=== PATIENT | male | born 1965 | race African-American/Black ===

== ENCOUNTER 2016-11-27 12:36 | Inpatient (IN) | payer OTHER ==
[2016-11-27 14:32] VITALS: BMI 20.4
[2016-11-27] MEDS ORDERED: LOPERAMIDE HCL 2 MG CAPSULE PO PRN (17:45)
[2016-11-27] MEDS ORDERED: P-EPHED 60MG/TRIPROLIDI 2.5MG TABLET PO PRN (17:45)
[2016-11-27] MEDS ORDERED: ACETAMINOPHEN 325 MG TABLET (FP) PO PRN (17:45)
[2016-11-27] MEDS ORDERED: guaiFENesin/D-METHORPHAN HB 10 ML UNIT-DOSE CUPS PO PRN (17:45)
[2016-11-27] MEDS ORDERED: MENTHOL/PHENOL 1 EACH UD MM PRN (17:45)
[2016-11-27] MEDS ORDERED: MAG HYDROX/AL HYDROX/SIMETH 30 ML UNIT-DOSE CUP PO PRN (17:45)
[2016-11-27] MEDS ORDERED: MAGNESIUM HYDROX 2400MG/30ML ORAL SUSPENSION 30 ML CUP PO PRN (17:45)
[2016-11-27] MEDS ORDERED: MAGNESIUM CITRATE 300 ML BOTTLE PO PRN (17:45)
[2016-11-27] MEDS ORDERED: NICOTINE POLACRILEX 2 MG GUM BUC PRN (17:45)
[2016-11-27] MEDS ORDERED: IBUPROFEN 400 MG TABLET (FP) PO PRN (17:45)
--- NOTE | 2016-11-27 17:45 | HP ---
CIWA Score - CIWA Score Nausea/Vomitin Muscle Tremors: 2 Anxiety: 4-Mod. Anxious/Guarded Agitation: 3 Paroxysmal Sweats: 2 Orientation: 0-Oriented Tacttile Disturbances: 2-Mild Itch/Numbness/Burn Auditory Disturbances: 0-None Visual Disturbances: 0-None Headache: 3-Moderate CIWA-Ar Total Score: 19 Admission ROS BHS - HPI Chief Complaint: alcohol and cocaine withdrawal sx Allergies/Adverse Reactions: Allergies Allergy/AdvReac Type Severity Reaction Status Date / Time Penicillins Allergy Severe Swelling Verified 11/27/16 17:37 - Ebola screening Have you traveled outside of the country in the last 21 days: No Have you had contact with anyone from an Ebola affected area: No Have you been sick,other than usual withdrawal symptoms: No Do you have a fever: No Patient History - Patient Medical History Hx Anemia: No Hx Asthma: No Hx Chronic Obstructive Pulmonary Disease (COPD): No Hx Cancer: No Hx Cardiac Disorders: No Hx Congestive Heart Failure: No Hx Hypertension: Yes Hx Hypercholesterolemia: No Hx Pacemaker: No HX Cerebrovascular Accident: No Hx Seizures: No Hx Dementia: No Hx Diabetes: No Hx Gastrointestinal Disorders: No Hx Liver Disease: Yes (hep c has not been treated) Hx Genitourinary Disorders: No Hx Sexually Transmitted Disorders: No Hx Renal Disease (ESRD): No Hx Thyroid Disease: No Hx Human Immunodeficiency Virus (HIV): Yes (ON MEDS, last taken 3 days ago) Hx Hepatitis C: Yes (NOT YET TREATED) Hx Depression: No Hx Suicide Attempt: Yes (no suicidal ideation at present, last in 1999) Hx Bipolar Disorder: No Hx Schizophrenia: Yes - Patient Surgical History Past Surgical History: No Hx Neurologic Surgery: No Hx Cataract Extraction: No Hx Cardiac Surgery: No Hx Lung Surgery: No Hx Breast Surgery: No Hx Breast Biopsy: No Hx Abdominal Surgery: No Hx Appendectomy: No Hx Cholecystectomy: No Hx Genitourinary Surgery: No Hx Section: No Hx Orthopedic Surgery: No Anesthesia Reaction: No - PPD History Date: 01/28/15 Results: 0mm PPD to be Administered?: Yes - Reproductive History Patient is a Female of Child Bearing Age (11 -55 yrs old): No Patient : No - Smoking Cessation Smoking history: Current every day smoker Have you smoked in the past 12 months: Yes Aproximately how many cigarettes per day: 4 Cigars Per Day: 0 Hx Chewing Tobacco Use: No Initiated information on smoking cessation: Yes 'Breaking Loose' booklet given: 11/27/16 - Substance & Tx. History Hx Alcohol Use: Yes Hx Substance Use: Yes Substance Use Type: Alcohol, Cocaine Hx [facility] - Substances Abused Alcohol Amount used: 6pk beer Age of first use: 15 Date of Last Use: 11/26/16 Crack Route: Smoking Frequency: Daily Amount used: $30 Age of first use: 36 Date of Last Use: 11/26/16 Family Disease History - Family Disease History Family Disease History: Other: Sister (ALCOHOL) Admission Physical Exam BHS - Vital Signs Vital Signs: Vital Signs - 24 hr 11/27/16 14:29 Temperature 96.9 F L Pulse Rate 70 Respiratory 18 Rate Blood Pressure 150/100 - Physical General Appearance: Yes: Nourished, Appropriately Dressed, Disheveled, Mild Distress, Thin, Tremorous, Irritable, Sweating, Anxious HEENTM: Yes: Within Normal Limits, EOMI, Hearing grossly Normal, Normal ENT Inspection, Normocephalic, Normal Voice, LEANDER, Pharynx Normal Respiratory: Yes: Within Normal Limits, Chest Non-Tender, Lungs Clear, Normal Breath Sounds, No Respiratory Distress, No Accessory Muscle Use Neck: Yes: Within Normal Limits, No masses,lesions,Nodules, Supple, Trachea in good position Breast: Yes: Breast Exam Deferred Cardiology: Yes: Within Normal Limits, Regular Rhythm, Regular Rate, S1, S2 Abdominal: Yes: Normal Bowel Sounds, Non Tender, Soft Genitourinary: Yes: Within Normal Limits Back: Yes: Within Normal Limits, Normal Inspection Musculoskeletal: Yes: full range of Motion, Gait Steady Extremities: Yes: Normal Capillary Refill, Normal Inspection, Normal Range of Motion, Tremors Neurological: Yes: nursing program coordinator II-XII NML intact, Fully Oriented, Alert, Motor Strength 5/5, Normal Response, Depressed Affect Integumentary: Yes: Normal Color, Warm, Diaphoresis, Moist Lymphatic: Yes: Within Normal Limits - Addiitonal Findings: withdrawal sx - Diagnostic (1) AIDS Current Visit: Yes Status: Active (2) hypertension Current Visit: Yes Status: Active (3) Cocaine dependence Current Visit: Yes Status: Acute (4) Nicotine abuse Current Visit: Yes Status: Acute (5) Nicotine dependence Current Visit: Yes Status: Acute Qualifiers: Nicotine product type: cigarettes Substance use status: uncomplicated Qualified Code(s): F17.210 - Nicotine dependence, cigarettes, uncomplicated ; F17.210 - Nicotine dependence, cigarettes, uncomplicated (6) Schizophrenia Current Visit: Yes Status: Chronic Qualifiers: Schizophrenia type: undifferentiated schizophrenia Qualified Code(s): F20.3 - Undifferentiated schizophrenia; F20.3 - Undifferentiated schizophrenia; F20.3 - Undifferentiated schizophrenia; F20.3 - Undifferentiated schizophrenia (7) Hepatitis C carrier Current Visit: Yes Status: Chronic (8) Alcohol dependence with uncomplicated withdrawal Current Visit: Yes Status: Acute Cleared for Admission S - Detox or Rehab S Level of Care: Medically Managed Detox Regimen/Protocol: Librium S Breath Alcohol Content Breath Alcohol Content: 0 Urine Drug Screen - Results Drug Screen Negative: No Urine Drug Screen Results: RUTHIE-Cocaine
[2016-11-27] MEDS ORDERED: hydrOXYzine PAMOATE 50 MG CAPSULE (FP) PO PRN (18:54)
[2016-11-27] MEDS: LISINOPRIL 20 MG TABLET (FP) PO SCH (20:13)
[2016-11-27] MEDS: ASPIRIN COATED 81 MG TABLET.EC PO SCH (20:13)
[2016-11-27] MEDS: NICOTINE 14 MG/24 HOURS TOPICAL PATCH TD SCH (20:20)
[2016-11-27] MEDS ORDERED: RALTEGRAVIR POTASSIUM 400 MG TAB PO SCH (22:00)
[2016-11-27 22:13] LABS: URINE APPEARANCE SLCLOUDY; URINE BILIRUBIN NEGATIVE (NEGATIVE); URINE BLOOD NEGATIVE (NEGATIVE); URINE COLOR AMBER; URINE GLUCOSE (UA) NEGATIVE (NEGATIVE); URINE KETONE NEGATIVE (NEGATIVE); URINE NITRITE NEGATIVE (NEGATIVE); URINE PROTEIN NEGATIVE (NEGATIVE); URINE UROBILINOGEN 4.0 E.U/dl mg/dL (0.2-1.0)
[2016-11-27] MEDS: chlordiazePOXIDE HCL 25 MG CAPSULE PO SCH (22:17)
[2016-11-27] MEDS: THIAMINE HCL 100 MG TABLET (FP) PO SCH (22:17)
[2016-11-27 22:48] LABS: URINE LEUK ESTERASE Negative (NEGATIVE)
[2016-11-27] MEDS: RITONAVIR 100 MG TABLET PO SCH (23:55)
[2016-11-28] MEDS: DARUNAVIR ETHANOLATE 600 MG TAB PO SCH ×3 (00:02→22:13)
[2016-11-28] MEDS: chlordiazePOXIDE HCL 25 MG CAPSULE PO SCH ×4 (05:58→22:15)
[2016-11-28 09:52] LABS: MCH 39.3 pg (25.7-33.7); MCHC 33.7 g/dl (32.0-35.9); MEAN CELL VOLUME 116.6 fl (80-96); MEAN PLT VOLUME 8.5 fl (7.5-11.1); PLATELET COUNT 173 K/MM3 (134-434); RDW 13.4 % (11.9-15.9); WHITE BLOOD COUNT 3.8 K/mm3 (4.0-10.0)
[2016-11-28 09:55] LABS: ALBUMIN 3.1 g/dl (3.4-5.0); ANION GAP 7 (8-16); CALCIUM 8.1 mg/dL (8.5-10.1); CO2 26 mmol/L (21-32); GLUCOSE,RANDOM 86 mg/dL (74-106)
[2016-11-28 10:06] LABS: ALK PHOS 77 U/L (45-117); BILIRUBIN,TOTAL 0.6 mg/dL (0.2-1.0); SGOT/AST 28 U/L (15-37); SGPT/ALT 49 U/L (12-78)
[2016-11-28] MEDS: LISINOPRIL 20 MG TABLET (FP) PO SCH (10:10)
[2016-11-28] MEDS: PRENATAL VITAMINS W/ FOLIC ACID TABLET (FP) PO SCH (10:10)
[2016-11-28] MEDS: ASPIRIN COATED 81 MG TABLET.EC PO SCH (10:10)
[2016-11-28] MEDS: RITONAVIR 100 MG TABLET PO SCH ×2 (10:11→22:13)
[2016-11-28] MEDS: NICOTINE 14 MG/24 HOURS TOPICAL PATCH TD SCH (10:11)
[2016-11-28] MEDS: EMTRICITABINE 200MG/TENOFOVIR 300MG PO SCH (10:11)
--- NOTE | 2016-11-28 10:33 | PN ---
[facility] CIWA - CIWA Score Nausea/Vomitin Muscle Tremors: 3 Anxiety: 3 Agitation: 3 Paroxysmal Sweats: 1-Minimal Palms Moist Orientation: 0-Oriented Tacttile Disturbances: 1-Very Mild Itch/Numbness Auditory Disturbances: 1-Very Mild Visual Disturbances: 0-None Headache: 2-Mild CIWA-Ar Total Score: 17 S Progress Note (SOAP) Subjective: alert,irritable,anxious,interrupted sleep,tremor Objective: 11/28/16 10:34 Vital Signs Temperature 97.0 F L 11/28/16 10:24 Pulse Rate 73 11/28/16 10:24 Respiratory Rate 16 11/28/16 10:24 Blood Pressure 125/97 11/28/16 10:24 O2 Sat by Pulse Oximetry (%) ekg sinus bradycardia 54/min,inverte t in 2,3,avf no chest pain,no sob,no dizziness Laboratory Last Values WBC 3.8 K/mm3 (4.0-10.0) L 11/28/16 07:00 RBC 3.44 M/mm3 (4.00-5.60) L 11/28/16 07:00 Hgb 13.5 GM/dL (11.7-16.9) D 11/28/16 07:00 Hct 40.1 % (35.4-49) 11/28/16 07:00 MCV 116.6 fl (80-96) H 11/28/16 07:00 MCH 39.3 pg (25.7-33.7) H 11/28/16 07:00 MCHC 33.7 g/dl (32.0-35.9) 11/28/16 07:00 RDW 13.4 % (11.9-15.9) 11/28/16 07:00 Plt Count 173 K/MM3 (134-434) 11/28/16 07:00 MPV 8.5 fl (7.5-11.1) 11/28/16 07:00 Sodium 142 mmol/L (136-145) 11/28/16 07:00 Potassium 3.7 mmol/L (3.5-5.1) 11/28/16 07:00 Chloride 109 mmol/L (98-107) H 11/28/16 07:00 Carbon Dioxide 26 mmol/L (21-32) 11/28/16 07:00 Anion Gap 7 (8-16) L 11/28/16 07:00 BUN 18 mg/dL (7-18) 11/28/16 07:00 Creatinine 1.0 mg/dL (0.7-1.3) 11/28/16 07:00 Creat Clearance w eGFR > 60 (>60) 11/28/16 07:00 Random Glucose 86 mg/dL (74-106) 11/28/16 07:00 Calcium 8.1 mg/dL (8.5-10.1) L 11/28/16 07:00 Total Bilirubin 0.6 mg/dL (0.2-1.0) D 11/28/16 07:00 AST 28 U/L (15-37) 11/28/16 07:00 ALT 49 U/L (12-78) D 11/28/16 07:00 Alkaline Phosphatase 77 U/L (45-117) 11/28/16 07:00 Total Protein 6.0 g/dl (6.4-8.2) L 11/28/16 07:00 Albumin 3.1 g/dl (3.4-5.0) L 11/28/16 07:00 Urine Color Tiffanie 11/27/16 21:30 Urine Appearance Slcloudy 11/27/16 21:30 Urine pH 6.0 (5.0-8.0) 11/27/16 21:30 Ur Specific [place] 1.020 (1.005-1.025) 11/27/16 21:30 Urine Protein Negative (NEGATIVE) 11/27/16 21:30 Urine Glucose (UA) Negative (NEGATIVE) 11/27/16 21:30 Urine Ketones Negative (NEGATIVE) 11/27/16 21:30 Urine Blood Negative (NEGATIVE) 11/27/16 21:30 Urine Nitrite Negative (NEGATIVE) 11/27/16 21:30 Urine Bilirubin Negative (NEGATIVE) 11/27/16 21:30 Urine Urobilinogen 4.0 e.u/dl mg/dL (0.2-1.0) 11/27/16 21:30 Ur Leukocyte Esterase Negative (NEGATIVE) 11/27/16 21:30 Assessment: 11/28/16 10:35 withdrawal symptom Plan: continue detox
[2016-11-28 12:59] LABS: MACROCYTOSIS 3+
--- NOTE | 2016-11-28 17:36 | CONSULT ---
[facility] Psychiatric Consult - Data Date of interview: 11/28/16 Admission source: [facility] Identifying data: Readmission to [facility] for this 51 y/o AA male seeking detox treatment on for alcohol and cocaine dependence.Patient is single without children,undomiciled,unemployed and supported on SSI benefits. Substance Abuse History: Discussed in this session.Patient confirmed this report. Smoking Cessation. Smoking history: Current every day smoker. Have you smoked in the past 12 months: Yes. Aproximately how many cigarettes per day : 4. Cigars Per Day: 0. Hx Chewing Tobacco Use: No. Initiated information on smoking cessation: Yes. 'Breaking Loose' booklet given: 11/27/16. - Substance & Tx. History. Hx Alcohol Use: Yes. Hx Substance Use: Yes. Substance Use Type : Alcohol, Cocaine. Hx Substance Use Treatment: Yes ([facility] past). - Substances Abused. Alcohol. Amount used: 6pk beer. Age of first use: 15. Date of Last Use: 11/26/16. Crack. Route: Smoking. Frequency: Daily. Amount used: $30. Age of first use: 36. Date of Last Use: 11/26/16 Medical History: HIV infection (on anti-retroviral medications),hypertension, hepatitis c and weight loss (chronic). Psychiatric History: Onset of mental illness (age 15).Multiple psychiatric hospitalizations (more than 10 admissions).Known to [facility] and [facility].Diagnosed with Paranoid Schizophrenia.Still maintained on a regimen of zyprexa (dose not recalled by patient).Mr De La Cruz reports OPD care at the [facility] mental health clinic in [facility].He reports one suicide attempt via jumping in front of a bus in 1997 (sustained a fracture of his right leg). Physical/Sexual Abuse/Trauma History: No reported history of abuse. Additional Comment: Urine Drug Screen Results: RUTHIE-Cocaine.Noted. Mental Status Exam - Mental Status Exam Alert and Oriented to: Time, Place, Person Cognitive Function: Good, Grossly Intact Patient Appearance: Disheveled Mood: Withdrawn Affect: Constricted Patient Behavior: Sedated (mildly), Fatigued Speech Pattern: Delayed, Slurred Voice Loudness: Moderately Soft/Quiet Thought Process: Goal Oriented Thought Disorder: Not Present Hallucinations: Denies Suicidal Ideation: Denies Homicidal Ideation: Denies Insight/Judgement: Poor Sleep: Well Appetite: Good Muscle strength/Tone: Normal Gait/Station: Other (not observed : patient in bed for the duration of psychiatric interview) Psychiatric Findings - Problem List ([place] 1, 2,3) (1) Schizophrenia Current Visit: Yes Status: Chronic Qualifiers: Schizophrenia type: undifferentiated schizophrenia Qualified Code(s): F20.3 - Undifferentiated schizophrenia; F20.3 - Undifferentiated schizophrenia; F20.3 - Undifferentiated schizophrenia; F20.3 - Undifferentiated schizophrenia (2) Alcohol dependence with uncomplicated withdrawal Current Visit: Yes Status: Acute (3) Cocaine dependence Current Visit: Yes Status: Acute (4) Nicotine dependence Current Visit: Yes Status: Acute Qualifiers: Nicotine product type: cigarettes Substance use status: uncomplicated Qualified Code(s): F17.210 - Nicotine dependence, cigarettes, uncomplicated ; F17.210 - Nicotine dependence, cigarettes, uncomplicated (5) AIDS Current Visit: Yes Status: Chronic (6) hypertension Current Visit: Yes Status: Chronic (7) Hepatitis C carrier Current Visit: Yes Status: Chronic - Initial Treatment Plan Initial Treatment Plan: Previous records are revisited.Psychoeducation.Detoxification.Medications : topiramate 50 mg po daily + zyprexa 15 mg po hs.Side effects/benefits discussed with the patient.Mr De La Cruz insists on continuation of these medications during this hospital course.Observation.
[2016-11-28] MEDS: THIAMINE HCL 100 MG TABLET (FP) PO SCH (22:16)
[2016-11-29] MEDS: chlordiazePOXIDE HCL 25 MG CAPSULE PO SCH ×3 (05:13→17:32)
[2016-11-29] MEDS: RITONAVIR 100 MG TABLET PO SCH ×2 (10:39→22:39)
[2016-11-29] MEDS: DARUNAVIR ETHANOLATE 600 MG TAB PO SCH ×2 (10:39→22:39)
[2016-11-29] MEDS: TOPIRAMATE 25 MG TABLET (FP) PO SCH (10:39)
[2016-11-29] MEDS: EMTRICITABINE 200MG/TENOFOVIR 300MG PO SCH (10:39)
[2016-11-29] MEDS: LISINOPRIL 20 MG TABLET (FP) PO SCH (10:40)
[2016-11-29] MEDS: PRENATAL VITAMINS W/ FOLIC ACID TABLET (FP) PO SCH (10:40)
[2016-11-29] MEDS: NICOTINE 14 MG/24 HOURS TOPICAL PATCH TD SCH (10:40)
[2016-11-29] MEDS: ASPIRIN COATED 81 MG TABLET.EC PO SCH (10:40)
--- NOTE | 2016-11-29 16:04 | PN ---
S CIWA - CIWA Score Nausea/Vomitin-Mild Nausea/No Vomiting Muscle Tremors: 3 Anxiety: 4-Mod. Anxious/Guarded Agitation: 3 Paroxysmal Sweats: 3 Orientation: 0-Oriented Tacttile Disturbances: 0-None Auditory Disturbances: 0-None Visual Disturbances: 0-None Headache: 0-None Present CIWA-Ar Total Score: 14 BHS Progress Note (SOAP) Subjective: Sweating,interrupted sleep,restless,tremors,anxiety Objective: 11/29/16 16:03 Vital Signs - 8 hr 11/29/16 11/29/16 10:00 13:46 Temperature 97.3 F L 98.6 F Pulse Rate 76 93 H Respiratory 18 18 Rate Blood Pressure 121/91 123/70 Laboratory Tests 11/27/16 11/28/16 11/28/16 21:30 07:00 07:00 WBC 3.8 L RBC 3.44 L Hgb 13.5 D Hct 40.1 MCV 116.6 H MCH 39.3 H MCHC 33.7 RDW 13.4 Plt Count 173 MPV 8.5 Macrocytosis 3+ Sodium 142 Potassium 3.7 Chloride 109 H Carbon Dioxide 26 Anion Gap 7 L BUN 18 Creatinine 1.0 Creat Clearance w eGFR > 60 Random Glucose 86 Calcium 8.1 L Total Bilirubin 0.6 D AST 28 ALT 49 D Alkaline Phosphatase 77 Total Protein 6.0 L Albumin 3.1 L Urine Color Tiffanie Urine Appearance Slcloudy Urine pH 6.0 Ur Specific [place] 1.020 Urine Protein Negative Urine Glucose (UA) Negative Urine Ketones Negative Urine Blood Negative Urine Nitrite Negative Urine Bilirubin Negative Urine Urobilinogen 4.0 e.u/dl Ur Leukocyte Esterase Negative RPR Titer 11/28/16 07:00 WBC RBC Hgb Hct MCV MCH MCHC RDW Plt Count MPV Macrocytosis Sodium Potassium Chloride Carbon Dioxide Anion Gap BUN Creatinine Creat Clearance w eGFR Random Glucose Calcium Total Bilirubin AST ALT Alkaline Phosphatase Total Protein Albumin Urine Color Urine Appearance Urine pH Ur Specific [place] Urine Protein Urine Glucose (UA) Urine Ketones Urine Blood Urine Nitrite Urine Bilirubin Urine Urobilinogen Ur Leukocyte Esterase RPR Titer Nonreactive labs noted Assessment: 11/29/16 16:03 Withdrawal sx. Plan: Continue detox
[2016-11-29] MEDS: chlordiazePOXIDE 5 MG CAPSULE PO SCH (22:38)
[2016-11-29] MEDS: THIAMINE HCL 100 MG TABLET (FP) PO SCH (22:38)
[2016-11-29] MEDS: OLANZapine 7.5 MG TABLET PO SCH (22:39)
[2016-11-30] MEDS: chlordiazePOXIDE 5 MG CAPSULE PO SCH ×3 (06:33→17:29)
[2016-11-30] MEDS: PRENATAL VITAMINS W/ FOLIC ACID TABLET (FP) PO SCH (11:17)
[2016-11-30] MEDS: EMTRICITABINE 200MG/TENOFOVIR 300MG PO SCH (11:18)
[2016-11-30] MEDS: DARUNAVIR ETHANOLATE 600 MG TAB PO SCH ×2 (11:18→22:25)
[2016-11-30] MEDS: RITONAVIR 100 MG TABLET PO SCH ×2 (11:18→22:25)
[2016-11-30] MEDS: ASPIRIN COATED 81 MG TABLET.EC PO SCH (11:18)
[2016-11-30] MEDS: NICOTINE 14 MG/24 HOURS TOPICAL PATCH TD SCH (11:19)
[2016-11-30] MEDS: LISINOPRIL 20 MG TABLET (FP) PO SCH (11:20)
--- NOTE | 2016-11-30 13:34 | PN ---
S Progress Note (SOAP) Subjective: ALERT,IRRITABLE,ANXIOUS,INTERRUPTED SLEEP Objective: 11/30/16 13:33 Vital Signs Temperature 97.8 F 11/30/16 10:00 Pulse Rate 83 11/30/16 10:00 Respiratory Rate 18 11/30/16 10:00 Blood Pressure 124/93 11/30/16 10:00 O2 Sat by Pulse Oximetry (%) Assessment: 11/30/16 13:34 WITHDRAWAL SYMPTOM Plan: CONTINUE DETOX,DISCHARGE IN AM
--- NOTE | 2016-11-30 17:39 | EKG ---
Test Reason : Blood Pressure : / mmHG Vent. Rate : 054 BPM Atrial Rate : 054 BPM P-R Int : 144 ms QRS Dur : 090 ms QT Int : 432 ms P-R-T Axes : 076 069 007 degrees QTc Int : 409 ms SINUS BRADYCARDIA Baseline wander MINIMAL VOLTAGE CRITERIA FOR LVH, MAY BE NORMAL VARIANT NONSPECIFIC T WAVE ABNORMALITY ABNORMAL ECG NO PREVIOUS ECGS AVAILABLE REPEAT EKG IF CLINICALLY INDICATED Confirmed by CABRERA LOVE MD ([id number]) on 11/30/2016 5:38:40 PM Referred By: Confirmed By:CABRERA LOVE MD
[2016-11-30] MEDS: OLANZapine 7.5 MG TABLET PO SCH (22:25)
[2016-11-30] MEDS: chlordiazePOXIDE HCL 10 MG CAPSULE PO SCH (22:25)
[2016-11-30] MEDS: THIAMINE HCL 100 MG TABLET (FP) PO SCH (22:25)
[2016-12-01] MEDS: chlordiazePOXIDE HCL 10 MG CAPSULE PO SCH (06:05)
--- NOTE | 2016-12-01 08:58 | DS ---
[facility] Detox Discharge Summary Admission Date: 11/27/16 Discharge Date: 12/01/16 - History Present History: Alcohol Dependence, Cocaine Dependence Additional Comments: FOLLOW UP WITH AFTER CARE PROGRAM ARRANGEMENT Pertinent Past History: AIDS HYPERTENSION HEPATITIS C SCHIZOPHRENIA NICOTINE DEPENDENCE - Physical Exam Results Vital Signs: Vital Signs Temperature 97.9 F 12/01/16 06:43 Pulse Rate 73 12/01/16 06:43 Respiratory Rate 18 12/01/16 06:43 Blood Pressure 144/90 12/01/16 06:43 O2 Sat by Pulse Oximetry (%) - Treatment Hospital Course: Detox Protocol Followed, Detoxed Safely, Responded well, Discharged Condition Good, Rehab Referral Accepted Patient has Accepted a Rehab Referral to: [facility] - Medication Discharge Medications: Ambulatory Orders Olanzapine [Zyprexa] 15 mg PO HS 02/27/12 Ritonavir [Norvir -] 100 mg PO BID 02/27/12 Raltegravir [Isentress] 400 mg PO BID 03/03/12 Aspirin Coated [Ecotrin -] 81 mg PO DAILY #30 tablet.ec 02/19/15 Darunavir Ethanolate [Prezista -] 600 mg PO BID #60 tab 02/19/15 Lisinopril [Prinivil] 20 mg PO DAILY #30 tablet 02/19/15 Topiramate [Topamax -] 50 mg PO DAILY #30 tablet 02/19/15 Olanzapine [Zyprexa -] 15 mg PO DAILY #60 tablet 11/28/16 - Diagnosis (1) Alcohol dependence with uncomplicated withdrawal Current Visit: Yes Status: Acute (2) Cocaine dependence Current Visit: Yes Status: Acute (3) Nicotine dependence Current Visit: Yes Status: Acute Qualifiers: Nicotine product type: cigarettes Substance use status: uncomplicated Qualified Code(s): F17.210 - Nicotine dependence, cigarettes, uncomplicated ; F17.210 - Nicotine dependence, cigarettes, uncomplicated (4) AIDS Current Visit: Yes Status: Chronic (5) Hepatitis C carrier Current Visit: Yes Status: Chronic (6) Schizophrenia Current Visit: Yes Status: Chronic Qualifiers: Schizophrenia type: undifferentiated schizophrenia Qualified Code(s): F20.3 - Undifferentiated schizophrenia; F20.3 - Undifferentiated schizophrenia; F20.3 - Undifferentiated schizophrenia; F20.3 - Undifferentiated schizophrenia (7) hypertension Current Visit: Yes Status: Chronic - AMA Did Patient Leave Against Medical Advice: No
[2016-12-01 09:55] VITALS: BP 123/98; PULSE 93; TEMP 96
[2016-12-01] MEDS: RITONAVIR 100 MG TABLET PO SCH (10:28)
[2016-12-01] MEDS: ASPIRIN COATED 81 MG TABLET.EC PO SCH (10:29)
[2016-12-01] MEDS: TOPIRAMATE 25 MG TABLET (FP) PO SCH (10:29)
[2016-12-01] MEDS: PRENATAL VITAMINS W/ FOLIC ACID TABLET (FP) PO SCH (10:29)
[2016-12-01] MEDS: LISINOPRIL 20 MG TABLET (FP) PO SCH (10:29)
[2016-12-01] MEDS: EMTRICITABINE 200MG/TENOFOVIR 300MG PO SCH (10:29)
[2016-12-01] MEDS: DARUNAVIR ETHANOLATE 600 MG TAB PO SCH (10:29)
--- NOTE | 2016-12-01 10:29 | PN ---
[facility] Progress Note Note: ADDENDUM PATIENT HAS HIS MEDICATIONS
[2016-12-01] MEDS: NICOTINE 14 MG/24 HOURS TOPICAL PATCH TD SCH (10:30)
--- NOTE | 2016-12-01 17:37 | PN ---
[facility] Progress Note Note: Psychiatry Attending's note (follow up) : Call received from pharmacist at [phone] ([facility]). Issue : cancel script for zyprexa 7.5 mg 2 tab po hs. Rewrite script as zyprexa 15 mg tab # 30 : take 15 mg po at hs. Done.New script is electronically sent to [facility].
== END 2016-12-01 11:10 | disposition home or self-care (01) | DRG 896 ==
LOC: YASAS 12:36 → Y6N 18:16
PROVIDERS: ADMIT Internal Medicine; ATTEND Internal Medicine
PROC: HZ2ZZZZ Detoxification Services for Substance Abuse Treatment (ICD-10-PCS; principal; 2016-11-27)
DX: F10.230 Alcohol dependence with withdrawal, uncomplicated (principal); B20 Human immunodeficiency virus [HIV] disease; F14.20 Cocaine dependence, uncomplicated; F17.210 Nicotine dependence, cigarettes, uncomplicated; F20.3 Undifferentiated schizophrenia; I10 Essential (primary) hypertension; B18.2 Chronic viral hepatitis C; R00.1 Bradycardia, unspecified; Z91.5 Personal history of self-harm
CPT/HCPCS: 36415; 80053; 81003; 85027; 86593; 93005; 93010

== ENCOUNTER 2017-04-06 14:48 | Inpatient (IN) | payer OTHER ==
[2017-04-06 15:49] VITALS: BMI 20.5
--- NOTE | 2017-04-06 20:14 | HP ---
CIWA Score - CIWA Score Nausea/Vomitin Muscle Tremors: 2 Anxiety: 2 Agitation: 2 Paroxysmal Sweats: 1-Minimal Palms Moist Orientation: 0-Oriented Tacttile Disturbances: 1-Very Mild Itch/Numbness Auditory Disturbances: 1-Very Mild Visual Disturbances: 1-Very Mild Sensitivity Headache: 1-Very Mild CIWA-Ar Total Score: 13 Admission ROS BHS - HPI Chief Complaint: WITHDRAWAL SYMPTOMS Allergies/Adverse Reactions: Allergies Allergy/AdvReac Type Severity Reaction Status Date / Time Penicillins Allergy Severe Swelling Verified 04/06/17 18:07 History of Present Illness: 52 Y.O. MAN WITH AN EXTENSIVE HISTORY OF ALCOHOL AND CRACK-COCAINE DEPENDENCE IS HERE SEEKING DETOX. HE WAS LAST HERE IN 11/2016 FOR DETOX AND REPORTS HIS LONGEST PERIOD OF SOBRIETY HAS BEEN 2 YEARS. Exam Limitations: No Limitations - Ebola screening Have you traveled outside of the country in the last 21 days: No Have you had contact with anyone from an Ebola affected area: No Have you been sick,other than usual withdrawal symptoms: No - Review of Systems Constitutional: Chills EENT: reports: No Symptoms Reported Respiratory: reports: No Symptoms reported Cardiac: reports: No Symptoms Reported GI: reports: No Symptoms Reported : reports: No Symptoms Reported Musculoskeletal: reports: No Symptoms Reported Integumentary: reports: No Symptoms Reported Neuro: reports: No Symptoms reported Endocrine: reports: No Symptoms Reported Hematology: reports: No Symptoms Reported Psychiatric: reports: Orientated x3, other (SCHIZOPHRENIA) Other Systems: Reviewed and Negative Patient History - Patient Medical History Hx Anemia: No Hx Asthma: No Hx Chronic Obstructive Pulmonary Disease (COPD): No Hx Cancer: No Hx Cardiac Disorders: No Hx Congestive Heart Failure: No Hx Hypertension: Yes Hx Hypercholesterolemia: No Hx Pacemaker: No HX Cerebrovascular Accident: No Hx Seizures: No Hx Dementia: No Hx Diabetes: No Hx Gastrointestinal Disorders: No Hx Liver Disease: Yes (hep c has not been treated) Hx Genitourinary Disorders: No Hx Sexually Transmitted Disorders: No Hx Renal Disease (ESRD): No Hx Thyroid Disease: No Hx Human Immunodeficiency Virus (HIV): Yes (On new regimen; does not know the names of new meds) Hx Hepatitis C: Yes Hx Depression: No Hx Suicide Attempt: No Hx Bipolar Disorder: No Hx Schizophrenia: Yes (Zyprexa ) - Patient Surgical History Past Surgical History: No Hx Neurologic Surgery: No Hx Cataract Extraction: No Hx Cardiac Surgery: No Hx Lung Surgery: No Hx Breast Surgery: No Hx Breast Biopsy: No Hx Abdominal Surgery: No Hx Appendectomy: No Hx Cholecystectomy: No Hx Genitourinary Surgery: No Hx Section: No Hx Orthopedic Surgery: No Anesthesia Reaction: No - PPD History Previous Implant?: Yes Documented Results: Negative w/proof Implanted On Prior [facility] Admission?: Yes Date: 11/29/16 Results: 0mm PPD to be Administered?: No - Reproductive History Patient is a Female of Child Bearing Age (11 -55 yrs old): No - Smoking Cessation Smoking history: Current every day smoker Have you smoked in the past 12 months: Yes Aproximately how many cigarettes per day: 4 Cigars Per Day: 0 Hx Chewing Tobacco Use: No Initiated information on smoking cessation: Yes 'Breaking Loose' booklet given: 04/06/17 - Substance & Tx. History Hx Alcohol Use: Yes Hx Substance Use: Yes Substance Use Type: Alcohol, Cocaine Hx Substance Use Treatment: Yes (Detox: 11/2016) - Substances Abused Alcohol Route: Oral Frequency: Daily Amount used: LIQUOR- 2 PINTS, BEER- 1 SIX PACK Age of first use: 7 Date of Last Use: 04/06/17 Crack Route: Smoking Frequency: Daily Amount used: 3 BAGS Age of first use: 31 Date of Last Use: 04/06/17 Family Disease History - Family Disease History Family Disease History: Other: Sister (ALCOHOL) Admission Physical Exam BHS - Vital Signs Vital Signs: Vital Signs - 24 hr 04/06/17 15:47 Temperature 96.7 F L Pulse Rate 60 Respiratory 18 Rate Blood Pressure 137/90 - Physical General Appearance: Yes: Disheveled, Anxious HEENTM: Yes: Hearing grossly Normal, Normal ENT Inspection, Normocephalic, Normal Voice Respiratory: Yes: Chest Non-Tender, Lungs Clear, Normal Breath Sounds, No Respiratory Distress, No Accessory Muscle Use Neck: Yes: No masses,lesions,Nodules, Trachea in good position Breast: Yes: Breast Exam Deferred Cardiology: Yes: Regular Rhythm, Regular Rate Abdominal: Yes: Normal Bowel Sounds, Non Tender, Flat Genitourinary: Yes: Other (NO COMPLAINTS REPORTED) Back: Yes: Normal Inspection Musculoskeletal: Yes: full range of Motion, Gait Steady Extremities: Yes: Normal Capillary Refill, Normal Inspection, Pedal Edema Neurological: Yes: media manager II-XII NML intact, Fully Oriented, Alert, Normal Mood/ Affect, Normal Response Integumentary: Yes: Normal Color, Dry, Warm Lymphatic: Yes: Within Normal Limits - Diagnostic (1) HIV (human immunodeficiency virus infection) Current Visit: Yes Status: Chronic (2) Alcohol dependence with uncomplicated withdrawal Current Visit: Yes Status: Chronic (3) Cocaine dependence Current Visit: Yes Status: Chronic (4) Nicotine abuse Current Visit: Yes Status: Chronic (5) hypertension Current Visit: Yes Status: Chronic Cleared for Admission [facility] - Detox or Rehab [facility] Level of Care: Medically Managed Detox Regimen/Protocol: Librium [facility] Breath Alcohol Content Breath Alcohol Content: 0 Urine Drug Screen - Results Drug Screen Negative: No Urine Drug Screen Results: RUTHIE-Cocaine
[2017-04-06] MEDS ORDERED: MAGNESIUM CITRATE 300 ML BOTTLE PO PRN (20:31)
[2017-04-06] MEDS ORDERED: MENTHOL/PHENOL 1 EACH UD MM PRN (20:31)
[2017-04-06] MEDS ORDERED: chlordiazePOXIDE HCL 25 MG CAPSULE PO PRN (20:31)
[2017-04-06] MEDS ORDERED: ACETAMINOPHEN 325 MG TABLET (FP) PO PRN (20:31)
[2017-04-06] MEDS ORDERED: hydrOXYzine PAMOATE 50 MG CAPSULE (FP) PO PRN (20:31)
[2017-04-06] MEDS ORDERED: IBUPROFEN 400 MG TABLET (FP) PO PRN (20:31)
[2017-04-06] MEDS ORDERED: P-EPHED 60MG/TRIPROLIDI 2.5MG TABLET PO PRN (20:31)
[2017-04-06] MEDS ORDERED: guaiFENesin/D-METHORPHAN HB 10 ML UNIT-DOSE CUPS PO PRN (20:31)
[2017-04-06] MEDS ORDERED: chlordiazePOXIDE HCL 25 MG CAPSULE PO ONE (20:31)
[2017-04-06] MEDS ORDERED: LOPERAMIDE HCL 2 MG CAPSULE PO PRN (20:31)
[2017-04-06] MEDS ORDERED: MAG HYDROX/AL HYDROX/SIMETH 30 ML UNIT-DOSE CUP PO PRN (20:31)
[2017-04-06] MEDS ORDERED: MAGNESIUM HYDROX 2400MG/30ML ORAL SUSPENSION 30 ML CUP PO PRN (20:31)
[2017-04-06] MEDS: THIAMINE HCL 100 MG TABLET (FP) PO SCH (21:14)
[2017-04-06] MEDS ORDERED: DARUNAVIR ETHANOLATE 600 MG TAB PO SCH (22:00)
[2017-04-06] MEDS: chlordiazePOXIDE HCL 25 MG CAPSULE PO SCH (22:54)
[2017-04-07] MEDS: chlordiazePOXIDE HCL 25 MG CAPSULE PO SCH ×4 (06:12→22:22)
[2017-04-07] MEDS ORDERED: GENVOYA PO SCH (10:00)
[2017-04-07 10:01] LABS: HEMATOCRIT 40.2 % (35.4-49); HEMOGLOBIN 13.6 GM/dL (11.7-16.9); MCH 37.1 pg (25.7-33.7); MCHC 33.8 g/dl (32.0-35.9); MEAN CELL VOLUME 109.7 fl (80-96); MEAN PLT VOLUME 8.5 fl (7.5-11.1); PLATELET COUNT 138 K/MM3 (134-434); RBC 3.66 M/mm3 (4.00-5.60); RDW 14.5 % (11.9-15.9); WHITE BLOOD COUNT 3.4 K/mm3 (4.0-10.0)
[2017-04-07] MEDS: ASPIRIN COATED 81 MG TABLET.EC PO SCH (10:25)
[2017-04-07] MEDS: LISINOPRIL 20 MG TABLET (FP) PO SCH (10:25)
[2017-04-07] MEDS: HYDROCHLOROTHIAZIDE 12.5 MG CAPSULE (FP) PO SCH (10:25)
[2017-04-07] MEDS: PRENATAL VITAMINS W/ FOLIC ACID TABLET (FP) PO SCH (10:25)
[2017-04-07 10:32] LABS: CHLORIDE 110 mmol/L (98-107); POTASSIUM 3.5 mmol/L (3.5-5.1); SODIUM 143 mmol/L (136-145)
[2017-04-07 10:49] LABS: ALK PHOS 115 U/L (45-117); ANION GAP 9 (8-16); BILIRUBIN,TOTAL 0.4 mg/dL (0.2-1.0); BLOOD UREA NITROGEN 22 mg/dL (7-18); CALCIUM 8.2 mg/dL (8.5-10.1); CO2 24 mmol/L (21-32); CREATININE 1.1 mg/dL (0.7-1.3); GLUCOSE,RANDOM 97 mg/dL (74-106); SGOT/AST 33 U/L (15-37); SGPT/ALT 45 U/L (12-78); TOT PROT 5.9 g/dl (6.4-8.2)
[2017-04-07] MEDS: ELVITEG/COB/EMTRI/TENOF (GENVOYA) TABLET (NF) PO SCH (12:48)
--- NOTE | 2017-04-07 13:36 | PN ---
[facility] CIWA - CIWA Score Nausea/Vomitin-No Nausea/No Vomiting Muscle Tremors: 3 Anxiety: 4-Mod. Anxious/Guarded Agitation: 4-Moderately Restless Paroxysmal Sweats: 3 Orientation: 2-Disoriented Date<2 days Tacttile Disturbances: 2-Mild Itch/Numbness/Burn Auditory Disturbances: 1-Very Mild Visual Disturbances: 0-None Headache: 0-None Present CIWA-Ar Total Score: 19 BHS Progress Note (SOAP) Subjective: Tremors, Fatigue, Anxious, Body Aches. Objective: PT. A & O X 2 (UNCERTAIN ABOUT CURRENT DAY/ DATE). PT. OBSERVED AMBULATING ON UNIT. NO ACUTE DISTRESS. PT. DENIES CHEST PAIN, DIZZINESS, AND SOB. 04/07/17 13:34 Vital Signs Temperature 97.5 F L 04/07/17 09:56 Pulse Rate 64 04/07/17 09:56 Respiratory Rate 18 04/07/17 09:56 Blood Pressure 144/94 04/07/17 09:56 O2 Sat by Pulse Oximetry (%) Laboratory Tests 04/07/17 04/07/17 04/07/17 07:30 07:30 07:30 WBC 3.4 L RBC 3.66 L Hgb 13.6 Hct 40.2 MCV 109.7 H MCH 37.1 H MCHC 33.8 RDW 14.5 Plt Count 138 D MPV 8.5 Sodium 143 Potassium 3.5 Chloride 110 H Carbon Dioxide 24 Anion Gap 9 BUN 22 H D Creatinine 1.1 Creat Clearance w eGFR > 60 Random Glucose 97 Calcium 8.2 L Total Bilirubin 0.4 D AST 33 ALT 45 Alkaline Phosphatase 115 D Total Protein 5.9 L Albumin 3.0 L RPR Titer Nonreactive LABS NOTED. UA RESULTS PENDING. 04/07/17 13:36 Assessment: 04/07/17 13:35 WITHDRAWAL SYMPTOMS. Plan: CONTINUE DETOX. INCREASE DAILY PO FLUID INTAKE.
--- NOTE | 2017-04-07 13:55 | EKG ---
Test Reason : Blood Pressure : / mmHG Vent. Rate : 061 BPM Atrial Rate : 061 BPM P-R Int : 160 ms QRS Dur : 094 ms QT Int : 398 ms P-R-T Axes : 072 061 001 degrees QTc Int : 400 ms NORMAL SINUS RHYTHM MINIMAL VOLTAGE CRITERIA FOR LVH, MAY BE NORMAL VARIANT NONSPECIFIC T WAVE ABNORMALITY ABNORMAL ECG WHEN COMPARED WITH ECG OF 06-APR-2017 21:21, NO SIGNIFICANT CHANGE WAS FOUND Confirmed by MD Nazia, Yonas ([id number]) on 04/07/2017 1:55:31 PM Referred By: Confirmed By:Yonas Mandujano MD
--- NOTE | 2017-04-07 13:58 | EKG ---
Test Reason : Blood Pressure : / mmHG Vent. Rate : 054 BPM Atrial Rate : 054 BPM P-R Int : 148 ms QRS Dur : 096 ms QT Int : 452 ms P-R-T Axes : 073 065 020 degrees QTc Int : 428 ms SINUS BRADYCARDIA VOLTAGE CRITERIA FOR LEFT VENTRICULAR HYPERTROPHY NONSPECIFIC T WAVE ABNORMALITY ABNORMAL ECG WHEN COMPARED WITH ECG OF 27-NOV-2016 19:16, NO SIGNIFICANT CHANGE WAS FOUND Confirmed by MD Nazia, Yonas ([id number]) on 04/07/2017 1:58:18 PM Referred By: Confirmed By:Yonas Mandujano MD
[2017-04-07 17:57] LABS: URINE APPEARANCE CLEAR; URINE BILIRUBIN NEGATIVE (NEGATIVE); URINE BLOOD NEGATIVE (NEGATIVE); URINE COLOR YELLOW; URINE GLUCOSE (UA) NEGATIVE (NEGATIVE); URINE KETONE NEGATIVE (NEGATIVE); URINE LEUK ESTERASE TRACE (NEGATIVE); URINE NITRITE NEGATIVE (NEGATIVE); URINE PROTEIN NEGATIVE (NEGATIVE); URINE UROBILINOGEN 4.0 E.U/dl mg/dL (0.2-1.0)
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
[2017-04-07 19:16] LABS: CALCIUM OXALATE CRYSTALS RARE /hpf (NONE SEEN); EPI CELLS RARE /HPF (FEW); URINE HYALINE CAST 1 /lpf; URINE MUCUS RARE
[2017-04-07] MEDS: THIAMINE HCL 100 MG TABLET (FP) PO SCH (22:21)
[2017-04-07] MEDS: OLANZapine 7.5 MG TABLET PO SCH (22:21)
[2017-04-08] MEDS: chlordiazePOXIDE HCL 25 MG CAPSULE PO SCH ×3 (05:45→17:28)
[2017-04-08] MEDS: LISINOPRIL 20 MG TABLET (FP) PO SCH (10:43)
[2017-04-08] MEDS: ASPIRIN COATED 81 MG TABLET.EC PO SCH (10:43)
[2017-04-08] MEDS: HYDROCHLOROTHIAZIDE 12.5 MG CAPSULE (FP) PO SCH (10:43)
[2017-04-08] MEDS: PRENATAL VITAMINS W/ FOLIC ACID TABLET (FP) PO SCH (10:43)
[2017-04-08] MEDS: ELVITEG/COB/EMTRI/TENOF (GENVOYA) TABLET (NF) PO SCH (10:43)
--- NOTE | 2017-04-08 12:32 | PN ---
[facility] CIWA - CIWA Score Nausea/Vomitin-No Nausea/No Vomiting Muscle Tremors: 4-Moderate,w/Arms Extend Anxiety: 4-Mod. Anxious/Guarded Agitation: 2 Paroxysmal Sweats: 3 Orientation: 0-Oriented Tacttile Disturbances: 0-None Auditory Disturbances: 1-Very Mild Visual Disturbances: 2-Mild Sensitivity Headache: 0-None Present CIWA-Ar Total Score: 16 S Progress Note (SOAP) Subjective: Anxious, Tremors, Sweating, Interrupted Sleep. Objective: PT. A & O X 3. NO ACUTE DISTRESS. 04/08/17 12:30 Vital Signs Temperature 96.8 F L 04/08/17 06:15 Pulse Rate 70 04/08/17 09:36 Respiratory Rate 18 04/08/17 09:36 Blood Pressure 121/75 04/08/17 09:36 O2 Sat by Pulse Oximetry (%) Laboratory Tests 04/06/17 04/07/17 04/07/17 17:37 07:30 07:30 WBC 3.4 L RBC 3.66 L Hgb 13.6 Hct 40.2 MCV 109.7 H MCH 37.1 H MCHC 33.8 RDW 14.5 Plt Count 138 D MPV 8.5 Sodium 143 Potassium 3.5 Chloride 110 H Carbon Dioxide 24 Anion Gap 9 BUN 22 H D Creatinine 1.1 Creat Clearance w eGFR > 60 Random Glucose 97 Calcium 8.2 L Total Bilirubin 0.4 D AST 33 ALT 45 Alkaline Phosphatase 115 D Total Protein 5.9 L Albumin 3.0 L Urine Color Yellow Urine Appearance Clear Urine pH 6.0 Ur Specific [place] 1.024 Urine Protein Negative Urine Glucose (UA) Negative Urine Ketones Negative Urine Blood Negative Urine Nitrite Negative Urine Bilirubin Negative Urine Urobilinogen 4.0 e.u/dl Ur Leukocyte Esterase Trace Urine WBC (Auto) 3 Urine RBC (Auto) 1 Ur Epithelial Cells Rare Calcium Oxalate Crystal Rare Hyaline Casts 1 Urine Mucus Rare RPR Titer 04/07/17 07:30 WBC RBC Hgb Hct MCV MCH MCHC RDW Plt Count MPV Sodium Potassium Chloride Carbon Dioxide Anion Gap BUN Creatinine Creat Clearance w eGFR Random Glucose Calcium Total Bilirubin AST ALT Alkaline Phosphatase Total Protein Albumin Urine Color Urine Appearance Urine pH Ur Specific [place] Urine Protein Urine Glucose (UA) Urine Ketones Urine Blood Urine Nitrite Urine Bilirubin Urine Urobilinogen Ur Leukocyte Esterase Urine WBC (Auto) Urine RBC (Auto) Ur Epithelial Cells Calcium Oxalate Crystal Hyaline Casts Urine Mucus RPR Titer Nonreactive LABS NOTED. Assessment: 04/08/17 12:31 WITHDRAWAL SYMPTOMS. Plan: CONTINUE DETOX.
[2017-04-08] MEDS: OLANZapine 7.5 MG TABLET PO SCH (22:15)
[2017-04-08] MEDS: THIAMINE HCL 100 MG TABLET (FP) PO SCH (22:15)
[2017-04-08] MEDS: chlordiazePOXIDE 5 MG CAPSULE PO SCH (22:16)
[2017-04-09] MEDS: chlordiazePOXIDE 5 MG CAPSULE PO SCH ×3 (06:20→17:02)
[2017-04-09] MEDS: LISINOPRIL 20 MG TABLET (FP) PO SCH (10:25)
[2017-04-09] MEDS: ASPIRIN COATED 81 MG TABLET.EC PO SCH (10:25)
[2017-04-09] MEDS: ELVITEG/COB/EMTRI/TENOF (GENVOYA) TABLET (NF) PO SCH (10:25)
[2017-04-09] MEDS: HYDROCHLOROTHIAZIDE 12.5 MG CAPSULE (FP) PO SCH (10:25)
[2017-04-09] MEDS: PRENATAL VITAMINS W/ FOLIC ACID TABLET (FP) PO SCH (10:25)
--- NOTE | 2017-04-09 12:16 | PN ---
BHS Progress Note (SOAP) Subjective: Fatigue, Interrupted Sleep. Objective: PT. A & O X 3. NO ACUTE DISTRESS. 04/09/17 12:15 Vital Signs Temperature 96.7 F L 04/09/17 09:27 Pulse Rate 74 04/09/17 09:27 Respiratory Rate 18 04/09/17 09:27 Blood Pressure 124/83 04/09/17 09:27 O2 Sat by Pulse Oximetry (%) Laboratory Tests 04/06/17 04/07/17 04/07/17 17:37 07:30 07:30 WBC 3.4 L RBC 3.66 L Hgb 13.6 Hct 40.2 MCV 109.7 H MCH 37.1 H MCHC 33.8 RDW 14.5 Plt Count 138 D MPV 8.5 Sodium 143 Potassium 3.5 Chloride 110 H Carbon Dioxide 24 Anion Gap 9 BUN 22 H D Creatinine 1.1 Creat Clearance w eGFR > 60 Random Glucose 97 Calcium 8.2 L Total Bilirubin 0.4 D AST 33 ALT 45 Alkaline Phosphatase 115 D Total Protein 5.9 L Albumin 3.0 L Urine Color Yellow Urine Appearance Clear Urine pH 6.0 Ur Specific [place] 1.024 Urine Protein Negative Urine Glucose (UA) Negative Urine Ketones Negative Urine Blood Negative Urine Nitrite Negative Urine Bilirubin Negative Urine Urobilinogen 4.0 e.u/dl Ur Leukocyte Esterase Trace Urine WBC (Auto) 3 Urine RBC (Auto) 1 Ur Epithelial Cells Rare Calcium Oxalate Crystal Rare Hyaline Casts 1 Urine Mucus Rare RPR Titer 04/07/17 07:30 WBC RBC Hgb Hct MCV MCH MCHC RDW Plt Count MPV Sodium Potassium Chloride Carbon Dioxide Anion Gap BUN Creatinine Creat Clearance w eGFR Random Glucose Calcium Total Bilirubin AST ALT Alkaline Phosphatase Total Protein Albumin Urine Color Urine Appearance Urine pH Ur Specific [place] Urine Protein Urine Glucose (UA) Urine Ketones Urine Blood Urine Nitrite Urine Bilirubin Urine Urobilinogen Ur Leukocyte Esterase Urine WBC (Auto) Urine RBC (Auto) Ur Epithelial Cells Calcium Oxalate Crystal Hyaline Casts Urine Mucus RPR Titer Nonreactive LABS NOTED. Assessment: 04/09/17 12:15 WITHDRAWAL SYMPTOMS. Plan: CONTINUE DETOX. INCREASE DAILY PO FLUID INTAKE.
[2017-04-09] MEDS: THIAMINE HCL 100 MG TABLET (FP) PO SCH (22:18)
[2017-04-09] MEDS: chlordiazePOXIDE HCL 10 MG CAPSULE PO SCH (22:18)
[2017-04-09] MEDS: OLANZapine 7.5 MG TABLET PO SCH (22:18)
[2017-04-10] MEDS: chlordiazePOXIDE HCL 10 MG CAPSULE PO SCH ×3 (05:52→17:24)
[2017-04-10 09:44] VITALS: BP 134/88; PULSE 81; TEMP 97.2
[2017-04-10] MEDS: PRENATAL VITAMINS W/ FOLIC ACID TABLET (FP) PO SCH (10:18)
[2017-04-10] MEDS: ELVITEG/COB/EMTRI/TENOF (GENVOYA) TABLET (NF) PO SCH (10:18)
[2017-04-10] MEDS: LISINOPRIL 20 MG TABLET (FP) PO SCH (10:19)
[2017-04-10] MEDS: HYDROCHLOROTHIAZIDE 12.5 MG CAPSULE (FP) PO SCH (10:19)
[2017-04-10] MEDS: ASPIRIN COATED 81 MG TABLET.EC PO SCH (10:20)
--- NOTE | 2017-04-10 11:40 | DS ---
[facility] Detox Discharge Summary Admission Date: 04/06/17 Discharge Date: 04/10/17 - History Present History: Alcohol Dependence, Cocaine Dependence Additional Comments: PATIENT GOING TO [facility] ([facility]) FOR AFTERCARE. PATIENT WAS DISCHARGED FROM DETOX UNIT IN STABLE MEDICAL CONDITION. Pertinent Past History: Hep C, HIV, Depression, Nicotine Dependence, Schizophrenia, HTN. - Physical Exam Results Vital Signs: Vital Signs Temperature 97.2 F L 04/10/17 09:43 Pulse Rate 81 04/10/17 09:43 Respiratory Rate 18 04/10/17 09:43 Blood Pressure 134/88 04/10/17 09:43 O2 Sat by Pulse Oximetry (%) Pertinent Admission Physical Exam Findings: WITHDRAWAL SYMPTOMS. Laboratory Tests 04/06/17 04/07/17 04/07/17 17:37 07:30 07:30 WBC 3.4 L RBC 3.66 L Hgb 13.6 Hct 40.2 MCV 109.7 H MCH 37.1 H MCHC 33.8 RDW 14.5 Plt Count 138 D MPV 8.5 Sodium 143 Potassium 3.5 Chloride 110 H Carbon Dioxide 24 Anion Gap 9 BUN 22 H D Creatinine 1.1 Creat Clearance w eGFR > 60 Random Glucose 97 Calcium 8.2 L Total Bilirubin 0.4 D AST 33 ALT 45 Alkaline Phosphatase 115 D Total Protein 5.9 L Albumin 3.0 L Urine Color Yellow Urine Appearance Clear Urine pH 6.0 Ur Specific [place] 1.024 Urine Protein Negative Urine Glucose (UA) Negative Urine Ketones Negative Urine Blood Negative Urine Nitrite Negative Urine Bilirubin Negative Urine Urobilinogen 4.0 e.u/dl Ur Leukocyte Esterase Trace Urine WBC (Auto) 3 Urine RBC (Auto) 1 Ur Epithelial Cells Rare Calcium Oxalate Crystal Rare Hyaline Casts 1 Urine Mucus Rare RPR Titer 04/07/17 07:30 WBC RBC Hgb Hct MCV MCH MCHC RDW Plt Count MPV Sodium Potassium Chloride Carbon Dioxide Anion Gap BUN Creatinine Creat Clearance w eGFR Random Glucose Calcium Total Bilirubin AST ALT Alkaline Phosphatase Total Protein Albumin Urine Color Urine Appearance Urine pH Ur Specific [place] Urine Protein Urine Glucose (UA) Urine Ketones Urine Blood Urine Nitrite Urine Bilirubin Urine Urobilinogen Ur Leukocyte Esterase Urine WBC (Auto) Urine RBC (Auto) Ur Epithelial Cells Calcium Oxalate Crystal Hyaline Casts Urine Mucus RPR Titer Nonreactive LABS NOTED. - Treatment Hospital Course: Detox Protocol Followed, Detoxed Safely, Responded well, Discharged Condition Good, Rehab Referral Accepted Patient has Accepted a Rehab Referral to: [facility] ([facility] . - Medication Discharge Medications: Ambulatory Orders Ritonavir [Norvir -] 100 mg PO BID 02/27/12 Raltegravir [Isentress] 400 mg PO BID 03/03/12 Aspirin Coated [Ecotrin -] 81 mg PO DAILY #30 tablet.ec 02/19/15 Darunavir Ethanolate [Prezista -] 600 mg PO BID #60 tab 02/19/15 Lisinopril [Prinivil] 20 mg PO DAILY #30 tablet 02/19/15 Topiramate [Topamax -] 50 mg PO DAILY #30 tablet 02/19/15 Olanzapine 15 mg PO HS #30 tablet 12/01/16 Elviteg/Cob/Emtri/Tenof Alafen [Genvoya (Non-Formulary)] 04/06/17 Hydrochlorothiazide 04/06/17 Hydrochlorothiazide [Hctz -] 04/06/17 Lisinopril [Lisinopril] 04/06/17 - Diagnosis (1) Alcohol dependence with uncomplicated withdrawal Current Visit: Yes Status: Acute (2) Cocaine dependence Current Visit: Yes Status: Acute (3) HIV (human immunodeficiency virus infection) Current Visit: Yes Status: Chronic (4) Nicotine dependence Current Visit: Yes Status: Acute Qualifiers: Nicotine product type: cigarettes Substance use status: uncomplicated Qualified Code(s): F17.210 - Nicotine dependence, cigarettes, uncomplicated (5) hypertension Current Visit: Yes Status: Chronic (6) Schizophrenia Current Visit: Yes Status: Chronic Qualifiers: Schizophrenia type: paranoid schizophrenia Qualified Code(s): F20.0 - Paranoid schizophrenia - AMA Did Patient Leave Against Medical Advice: No
== END 2017-04-10 17:51 | disposition other institution (70) | DRG 897 ==
LOC: YASAS 14:48 → Y3N 19:45
PROVIDERS: ADMIT Internal Medicine; ATTEND Internal Medicine
PROC: HZ2ZZZZ Detoxification Services for Substance Abuse Treatment (ICD-10-PCS; principal; 2017-04-06)
DX: F10.230 Alcohol dependence with withdrawal, uncomplicated (principal); F14.20 Cocaine dependence, uncomplicated; F20.0 Paranoid schizophrenia; F17.210 Nicotine dependence, cigarettes, uncomplicated; I10 Essential (primary) hypertension; Z21 Asymptomatic human immunodeficiency virus [HIV] infection status; Z88.0 Allergy status to penicillin
CPT/HCPCS: 36415; 80053; 81003; 81015; 85027; 86593; 93005; 93010

== ENCOUNTER 2017-04-10 17:51 | Inpatient (IN) | payer OTHER ==
[2017-04-10] MEDS ORDERED: MAGNESIUM CITRATE 300 ML BOTTLE PO PRN (18:20)
[2017-04-10] MEDS ORDERED: MAG HYDROX/AL HYDROX/SIMETH 30 ML UNIT-DOSE CUP PO PRN (18:20)
[2017-04-10] MEDS ORDERED: IBUPROFEN 400 MG TABLET (FP) PO PRN (18:20)
[2017-04-10] MEDS ORDERED: hydrOXYzine PAMOATE 50 MG CAPSULE (FP) PO PRN (18:20)
[2017-04-10] MEDS ORDERED: ACETAMINOPHEN 325 MG TABLET (FP) PO PRN (18:20)
[2017-04-10] MEDS ORDERED: MAGNESIUM HYDROX 2400MG/30ML ORAL SUSPENSION 30 ML CUP PO PRN (18:20)
[2017-04-10] MEDS ORDERED: P-EPHED 60MG/TRIPROLIDI 2.5MG TABLET PO PRN (18:20)
[2017-04-10] MEDS ORDERED: LOPERAMIDE HCL 2 MG CAPSULE PO PRN (18:20)
[2017-04-10] MEDS ORDERED: MENTHOL/PHENOL 1 EACH UD MM PRN (18:20)
[2017-04-10] MEDS ORDERED: guaiFENesin/D-METHORPHAN HB 10 ML UNIT-DOSE CUPS PO PRN (18:20)
--- NOTE | 2017-04-10 18:31 | HP ---
[facility] Rehab Assess/Revision - Admission History Admitted to Rehab from: [facility] Date of Admission to Rehab: 04/10/17 - Findings Detox History & Physical reviewed: Yes Concur with findings: Yes Comments/Additional Findings: Admit to rehab. Inpatient Rehab Admission - Initial Determination Are CD services needed?: Yes Free of communicable disease: No Not in need of hospitalization: Yes - Rehab Admission Criteria Previous failed treatment: Yes Poor recovery environment: Yes Comorbidities: Yes Lacks judgement: Yes Patient is meeting Inpatient Rehab admission criteria:: Yes
[2017-04-10] MEDS: OLANZapine 7.5 MG TABLET PO SCH (21:17)
[2017-04-10] MEDS: THIAMINE HCL 100 MG TABLET (FP) PO SCH (21:17)
[2017-04-11] MEDS ORDERED: PATIENT'S OWN MEDICATION (NON-FORMULARY) (Elviteg/Cob/Emtri/Tenof Alafen 1 TAB) PO SCH (10:00)
[2017-04-11] MEDS: HYDROCHLOROTHIAZIDE 12.5 MG CAPSULE (FP) PO SCH (10:08)
[2017-04-11] MEDS: LISINOPRIL 20 MG TABLET (FP) PO SCH (10:08)
[2017-04-11] MEDS: ASPIRIN COATED 81 MG TABLET.EC PO SCH (10:08)
[2017-04-11] MEDS: PRENATAL VITAMINS W/ FOLIC ACID TABLET (FP) PO SCH (10:08)
[2017-04-11] MEDS: ELVITEG/COB/EMTRI/TENOFO (STRIBILD) TABLET -NF PO SCH (14:28)
[2017-04-11] MEDS: OLANZapine 7.5 MG TABLET PO SCH (21:12)
[2017-04-11] MEDS: THIAMINE HCL 100 MG TABLET (FP) PO SCH (21:12)
[2017-04-12] MEDS: HYDROCHLOROTHIAZIDE 12.5 MG CAPSULE (FP) PO SCH (10:20)
[2017-04-12] MEDS: ELVITEG/COB/EMTRI/TENOFO (STRIBILD) TABLET -NF PO SCH (10:20)
[2017-04-12] MEDS: PRENATAL VITAMINS W/ FOLIC ACID TABLET (FP) PO SCH (10:20)
[2017-04-12] MEDS: LISINOPRIL 20 MG TABLET (FP) PO SCH (10:20)
[2017-04-12] MEDS: ASPIRIN COATED 81 MG TABLET.EC PO SCH (10:20)
[2017-04-12] MEDS: THIAMINE HCL 100 MG TABLET (FP) PO SCH (21:22)
[2017-04-12] MEDS: OLANZapine 7.5 MG TABLET PO SCH (21:22)
[2017-04-13] MEDS: ASPIRIN COATED 81 MG TABLET.EC PO SCH (09:58)
[2017-04-13] MEDS: ELVITEG/COB/EMTRI/TENOFO (STRIBILD) TABLET -NF PO SCH (09:58)
[2017-04-13] MEDS: HYDROCHLOROTHIAZIDE 12.5 MG CAPSULE (FP) PO SCH (09:58)
[2017-04-13] MEDS: LISINOPRIL 20 MG TABLET (FP) PO SCH (09:58)
[2017-04-13] MEDS: PRENATAL VITAMINS W/ FOLIC ACID TABLET (FP) PO SCH (09:58)
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
[2017-04-13] MEDS: THIAMINE HCL 100 MG TABLET (FP) PO SCH (21:17)
[2017-04-13] MEDS: OLANZapine 7.5 MG TABLET PO SCH (21:17)
[2017-04-14] MEDS: ELVITEG/COB/EMTRI/TENOFO (STRIBILD) TABLET -NF PO SCH (10:04)
[2017-04-14] MEDS: LISINOPRIL 20 MG TABLET (FP) PO SCH (10:04)
[2017-04-14] MEDS: ASPIRIN COATED 81 MG TABLET.EC PO SCH (10:04)
[2017-04-14] MEDS: PRENATAL VITAMINS W/ FOLIC ACID TABLET (FP) PO SCH (10:04)
[2017-04-14] MEDS: HYDROCHLOROTHIAZIDE 12.5 MG CAPSULE (FP) PO SCH (10:04)
[2017-04-14] MEDS: THIAMINE HCL 100 MG TABLET (FP) PO SCH (21:22)
[2017-04-14] MEDS: OLANZapine 7.5 MG TABLET PO SCH (21:22)
[2017-04-15] MEDS: PRENATAL VITAMINS W/ FOLIC ACID TABLET (FP) PO SCH (10:02)
[2017-04-15] MEDS: HYDROCHLOROTHIAZIDE 12.5 MG CAPSULE (FP) PO SCH (10:02)
[2017-04-15] MEDS: ASPIRIN COATED 81 MG TABLET.EC PO SCH (10:03)
[2017-04-15] MEDS: LISINOPRIL 20 MG TABLET (FP) PO SCH (10:03)
[2017-04-15] MEDS: ELVITEG/COB/EMTRI/TENOFO (STRIBILD) TABLET -NF PO SCH (10:03)
[2017-04-15] MEDS: OLANZapine 7.5 MG TABLET PO SCH (21:33)
[2017-04-15] MEDS: THIAMINE HCL 100 MG TABLET (FP) PO SCH (21:33)
[2017-04-16] MEDS: LISINOPRIL 20 MG TABLET (FP) PO SCH (10:09)
[2017-04-16] MEDS: ASPIRIN COATED 81 MG TABLET.EC PO SCH (10:09)
[2017-04-16] MEDS: HYDROCHLOROTHIAZIDE 12.5 MG CAPSULE (FP) PO SCH (10:09)
[2017-04-16] MEDS: ELVITEG/COB/EMTRI/TENOFO (STRIBILD) TABLET -NF PO SCH (10:09)
[2017-04-16] MEDS: PRENATAL VITAMINS W/ FOLIC ACID TABLET (FP) PO SCH (10:09)
[2017-04-16] MEDS: THIAMINE HCL 100 MG TABLET (FP) PO SCH (21:20)
[2017-04-16] MEDS: OLANZapine 7.5 MG TABLET PO SCH (21:21)
[2017-04-17] MEDS: HYDROCHLOROTHIAZIDE 12.5 MG CAPSULE (FP) PO SCH (10:15)
[2017-04-17] MEDS: PRENATAL VITAMINS W/ FOLIC ACID TABLET (FP) PO SCH (10:15)
[2017-04-17] MEDS: LISINOPRIL 20 MG TABLET (FP) PO SCH (10:15)
[2017-04-17] MEDS: ASPIRIN COATED 81 MG TABLET.EC PO SCH (10:15)
[2017-04-17] MEDS: ELVITEG/COB/EMTRI/TENOFO (STRIBILD) TABLET -NF PO SCH (10:15)
[2017-04-17] MEDS: THIAMINE HCL 100 MG TABLET (FP) PO SCH (21:10)
[2017-04-17] MEDS: OLANZapine 7.5 MG TABLET PO SCH (21:11)
[2017-04-18] MEDS: HYDROCHLOROTHIAZIDE 12.5 MG CAPSULE (FP) PO SCH (09:43)
[2017-04-18] MEDS: PRENATAL VITAMINS W/ FOLIC ACID TABLET (FP) PO SCH (09:43)
[2017-04-18] MEDS: ASPIRIN COATED 81 MG TABLET.EC PO SCH (09:43)
[2017-04-18] MEDS: LISINOPRIL 20 MG TABLET (FP) PO SCH (09:43)
[2017-04-18] MEDS: ELVITEG/COB/EMTRI/TENOFO (STRIBILD) TABLET -NF PO SCH (09:43)
[2017-04-18] MEDS: OLANZapine 7.5 MG TABLET PO SCH (21:09)
[2017-04-18] MEDS: THIAMINE HCL 100 MG TABLET (FP) PO SCH (21:09)
[2017-04-19] MEDS: ASPIRIN COATED 81 MG TABLET.EC PO SCH (09:55)
[2017-04-19] MEDS: HYDROCHLOROTHIAZIDE 12.5 MG CAPSULE (FP) PO SCH (09:55)
[2017-04-19] MEDS: PRENATAL VITAMINS W/ FOLIC ACID TABLET (FP) PO SCH (09:55)
[2017-04-19] MEDS: ELVITEG/COB/EMTRI/TENOFO (STRIBILD) TABLET -NF PO SCH (09:55)
[2017-04-19] MEDS: LISINOPRIL 20 MG TABLET (FP) PO SCH (09:55)
[2017-04-19] MEDS: OLANZapine 7.5 MG TABLET PO SCH (21:12)
[2017-04-19] MEDS: THIAMINE HCL 100 MG TABLET (FP) PO SCH (21:12)
[2017-04-20 06:55] VITALS: BP 143/90; PULSE 60; TEMP 98
[2017-04-20] MEDS: HYDROCHLOROTHIAZIDE 12.5 MG CAPSULE (FP) PO SCH (09:51)
[2017-04-20] MEDS: ELVITEG/COB/EMTRI/TENOFO (STRIBILD) TABLET -NF PO SCH (09:51)
[2017-04-20] MEDS: PRENATAL VITAMINS W/ FOLIC ACID TABLET (FP) PO SCH (09:51)
[2017-04-20] MEDS: LISINOPRIL 20 MG TABLET (FP) PO SCH (09:51)
[2017-04-20] MEDS: ASPIRIN COATED 81 MG TABLET.EC PO SCH (09:51)
--- NOTE | 2017-04-20 10:16 | PN ---
Psychiatric Progress Note Vital Signs: Vital Signs Period Temp Pulse Resp BP Sys/Marin Pulse Ox Last 24 Hr 98.0 F 60 16-18 143/90 Date of Session: 04/20/17 Chief Complaint:: discharge visit HPI: Patient has addressed alcohol, cocaine, nicotine dependende comorbid Schizophrenia. ROS: HIV,AIDS, HTN and HEP C medically managed. Current Medications: Active Medications Generic Name Dose Route Start Last Admin Trade Name Freq PRN Reason Stop Dose Admin Acetaminophen 650 mg 04/10/17 18:20 Tylenol - PO Q4H PRN FEVER Al Hydroxide/Mg Hydroxide 30 ml 04/10/17 18:20 Mylanta Oral Suspension - PO Q6H PRN DYSPEPSIA Aspirin 81 mg 04/11/17 10:00 04/20/17 09:51 Ecotrin - PO 81 mg DAILY EDYTA Administration Elvitegravir/Cobicis/Emtricit/Tenof 1 tab 04/11/17 10:00 04/20/17 09:51 Stribild (Non-Formulary) PO 1 tab DAILY EDYTA Administration Eucalyptus/Menthol/Phenol/Sorbitol 1 each 04/10/17 18:20 Cepastat Lozenge - MM Q4H PRN SORE THROAT Guaifenesin 10 ml 04/10/17 18:20 Robitussin Dm - PO Q6H PRN COUGH Hydrochlorothiazide 12.5 mg 04/11/17 10:00 04/20/17 09:51 Hctz - PO 12.5 mg DAILY EDYTA Administration Hydroxyzine Pamoate 50 mg 04/10/17 18:20 Vistaril - PO Q4H PRN AGITATION Lisinopril 20 mg 04/11/17 10:00 04/20/17 09:51 Prinivil PO 20 mg DAILY EDYTA Administration Loperamide HCl 4 mg 04/10/17 18:20 Imodium - PO Q6H PRN DIARRHEA Magnesium Citrate 300 ml 04/10/17 18:20 Citroma - PO Q48H PRN CONSTIPATION Magnesium Hydroxide 30 ml 04/10/17 18:20 Milk Of Magnesia - PO DAILY PRN CONSTIPATION Olanzapine 15 mg 04/10/17 22:00 04/19/17 21:12 Zyprexa - PO 15 mg HS EDYTA Administration Multivit/Folic Acid/Iron 1 tab 04/11/17 10:00 04/20/17 09:51 Vitamins (Sjr) - PO 1 tab DAILY EDYTA Administration Pseudoephedrine/Triprolidine 1 combo 04/10/17 18:20 Actifed - PO TID PRN NASAL CONGESTION Thiamine HCl 100 mg 04/10/17 22:00 04/19/17 21:12 Vitamin B1 - PO 100 mg HS EDYTA Administration Current Side Effect: No Lab tests ordered: No Lab tests reviewed: Yes Provider note:: Patient has completed today his treatment and met his treatment goals and will continue to address his issues at [facility], where he addresses both HIV and addiction issues. He focuses on insights gained in treatment and importance of changing attitudes for the utilization of supports to prevent relapses. Patient is responding well to Zyprexa 15mg HS, with no evidence decompensation. Patient will follow upt at [facility] with his psychiatrist , patient states he has adequate supply of medication at home and does not require a new script. He verbalized understanding the importance of taking medications as prescribed and scheduling, keeping aftercare appointments. Patient is stable for discharge today. Total face to face time:: 35 Mental Status Exam - Mental Status Exam Alert and Oriented to: Time, Place, Person Cognitive Function: Good Patient Appearance: Well Groomed Mood: Hopeful Affect: Appropriate, Mood Congruent Patient Behavior: Appropriate, Cooperative Speech Pattern: Clear, Appropriate Voice Loudness: Normal Thought Process: Intact, Goal Oriented Thought Disorder: Not Present Hallucinations: Denies Suicidal Ideation: Denies Homicidal Ideation: Denies Insight/Judgement: Fair Sleep: Fair Appetite: Good Muscle strength/Tone: Normal Gait/Station: Normal Psychiatric Treatment Plan - Problem List (1) Cocaine dependence Current Visit: Yes (2) Nicotine dependence Current Visit: Yes Qualifiers: Nicotine product type: cigarettes Substance use status: uncomplicated Qualified Code(s): F17.210 - Nicotine dependence, cigarettes, uncomplicated (3) Alcohol dependence Current Visit: Yes (4) Schizophrenia Current Visit: Yes Qualifiers: Schizophrenia type: paranoid schizophrenia Qualified Code(s): F20.0 - Paranoid schizophrenia Comment: History. (5) AIDS Current Visit: No (6) HIV (human immunodeficiency virus infection) Current Visit: No (7) Hepatitis C carrier Current Visit: No (8) hypertension Current Visit: No
== END 2017-04-20 10:35 | disposition home or self-care (01) | DRG 895 ==
LOC: YASAS 17:51 → Y5N 17:52
PROVIDERS: ADMIT Psychiatry & Neurology Psychiatry; ATTEND Psychiatry & Neurology Psychiatry
PROC: HZ42ZZZ Group Counseling for Substance Abuse Treatment, Cognitive-Behavioral (ICD-10-PCS; principal; 2017-04-10)
DX: F14.20 Cocaine dependence, uncomplicated (principal); F10.230 Alcohol dependence with withdrawal, uncomplicated; F20.0 Paranoid schizophrenia; F17.210 Nicotine dependence, cigarettes, uncomplicated; I10 Essential (primary) hypertension; B18.2 Chronic viral hepatitis C; Z21 Asymptomatic human immunodeficiency virus [HIV] infection status; Z91.5 Personal history of self-harm; Z59.0 Homelessness

== ENCOUNTER 2020-07-27 12:38 | Inpatient (IN) | payer BC, OTHER ==
[2020-07-27 13:53] VITALS: BMI 20.2
[2020-07-27] MEDS ORDERED: MAG HYDROX/AL HYDROX/SIMETH 30 ML UNIT-DOSE CUP PO PRN (20:34)
[2020-07-27] MEDS ORDERED: MAGNESIUM HYDROX 2400MG/30ML ORAL SUSPENSION 30 ML CUP PO PRN (20:34)
[2020-07-27] MEDS ORDERED: MAGNESIUM CITRATE 300 ML BOTTLE PO PRN (20:34)
[2020-07-27] MEDS ORDERED: ACETAMINOPHEN 325 MG TABLET (FP) PO PRN (20:34)
[2020-07-27] MEDS ORDERED: IBUPROFEN 400 MG TABLET (FP) PO PRN (20:34)
[2020-07-27] MEDS ORDERED: LOPERAMIDE HCL 2 MG CAPSULE PO PRN (20:34)
[2020-07-27] MEDS ORDERED: guaiFENesin 200 MG/10 ML 10 ML UNIT-DOSE CUPS PO PRN (20:34)
[2020-07-27] MEDS ORDERED: P-EPHED 60MG/TRIPROLIDI 2.5MG TABLET PO PRN (20:34)
[2020-07-27] MEDS: THIAMINE HCL 100 MG TABLET (FP) PO SCH (22:26)
[2020-07-27] MEDS: hydrOXYzine PAMOATE 25 MG CAPSULE (FP) PO PRN (22:26)
[2020-07-27] MEDS: LISINOPRIL 5 MG TABLET PO SCH (22:26)
[2020-07-27] MEDS: MELATONIN 5 MG TABLETS PO SCH (22:26)
[2020-07-27] MEDS ORDERED: TUBERCULIN PPD 5 TU/0.1ML VIAL ID ONE (22:31)
[2020-07-28] MEDS ORDERED: cloNIDine HCL 0.1 MG TABLET PO ONE (07:22)
[2020-07-28] MEDS ORDERED: PT OWN MED DRAWER 7, Y5N ONE (08:45)
[2020-07-28] MEDS: PRENATAL VITAMINS W/ FOLIC ACID TABLET (FP) PO SCH (10:17)
[2020-07-28] MEDS: LISINOPRIL 5 MG TABLET PO SCH (10:17)
[2020-07-28] MEDS: ASPIRIN COATED 81 MG TABLET.EC PO SCH (10:18)
[2020-07-28 11:19] LABS: HEMATOCRIT 43.9 % (35.4-49); HEMOGLOBIN 15.2 GM/dL (11.7-16.9); MCH 33.7 pg (25.7-33.7); MCHC 34.7 g/dl (32.0-35.9); MEAN CELL VOLUME 97.3 fl (80-96); PLATELET COUNT 206 K/MM3 (134-434); RBC 4.51 M/mm3 (4.00-5.60); RDW 13.4 % (11.9-15.9); WHITE BLOOD COUNT 5.7 K/mm3 (4.0-10.0)
[2020-07-28] MEDS: ELVITEG/COB/EMTRI/TENOF (GENVOYA) TABLET (NF) PO SCH (11:22)
[2020-07-28] MEDS: DARUNAVIR ETHANOLATE 600 MG TAB PO SCH (11:23)
[2020-07-28 11:43] LABS: ALBUMIN 3.8 g/dl (3.4-5.0); CALCIUM 9.1 mg/dL (8.5-10.1)
[2020-07-28 11:44] LABS: BLOOD UREA NITROGEN 16.9 mg/dL (7-18)
[2020-07-28 11:47] LABS: BILIRUBIN,TOTAL 0.7 mg/dL (0.2-1)
[2020-07-28 11:48] LABS: TOT PROT 7.2 g/dl (6.4-8.2)
[2020-07-28] MEDS: MELATONIN 5 MG TABLETS PO SCH (21:20)
[2020-07-28] MEDS: OLANZapine 10 MG TABLET PO SCH (21:20)
[2020-07-28] MEDS: THIAMINE HCL 100 MG TABLET (FP) PO SCH (21:21)
[2020-07-29] MEDS ORDERED: cloNIDine HCL 0.1 MG TABLET PO ONE ×2 (06:54→12:44)
[2020-07-29] MEDS: hydrOXYzine PAMOATE 25 MG CAPSULE (FP) PO PRN (09:48)
[2020-07-29] MEDS: LISINOPRIL 5 MG TABLET PO SCH (09:48)
[2020-07-29] MEDS: PRENATAL VITAMINS W/ FOLIC ACID TABLET (FP) PO SCH (09:49)
[2020-07-29] MEDS: ASPIRIN COATED 81 MG TABLET.EC PO SCH (09:49)
[2020-07-29] MEDS: ELVITEG/COB/EMTRI/TENOF (GENVOYA) TABLET (NF) PO SCH (09:50)
[2020-07-29] MEDS: DARUNAVIR ETHANOLATE 600 MG TAB PO SCH (09:50)
[2020-07-29 13:18] LABS: EPI CELLS 2 /uL (0-25.1); HYALINE CASTS 0 /uL (0-3.1); PH,URINE 7.5 (5.0-8.0); URINE APPEARANCE CLEAR; URINE BACTERIA 3 /uL (0-1359); URINE BILIRUBIN NEGATIVE (NEGATIVE); URINE COLOR YELLOW; URINE GLUCOSE (UA) NEGATIVE (NEGATIVE); URINE KETONE NEGATIVE (NEGATIVE); URINE LEUK ESTERASE TRACE (NEGATIVE); URINE NITRITE NEGATIVE (NEGATIVE); URINE PROTEIN NEGATIVE (NEGATIVE); URINE RBC 4 /uL (0-23.9); URINE UROBILINOGEN 0.2 mg/dL (0.2-1.0); URINE WBC 2 /uL (0-25.8)
[2020-07-29] MEDS: HYDROCHLOROTHIAZIDE 12.5 MG CAPSULE (FP) PO SCH (13:39)
[2020-07-29] MEDS: MELATONIN 5 MG TABLETS PO SCH (21:24)
[2020-07-29] MEDS: OLANZapine 10 MG TABLET PO SCH (21:25)
[2020-07-29] MEDS: THIAMINE HCL 100 MG TABLET (FP) PO SCH (21:25)
[2020-07-30] MEDS: HYDROCHLOROTHIAZIDE 12.5 MG CAPSULE (FP) PO SCH (09:59)
[2020-07-30] MEDS: PRENATAL VITAMINS W/ FOLIC ACID TABLET (FP) PO SCH (09:59)
[2020-07-30] MEDS: ASPIRIN COATED 81 MG TABLET.EC PO SCH (09:59)
[2020-07-30] MEDS: ELVITEG/COB/EMTRI/TENOF (GENVOYA) TABLET (NF) PO SCH (10:00)
[2020-07-30] MEDS: DARUNAVIR ETHANOLATE 600 MG TAB PO SCH (10:00)
[2020-07-30] MEDS ORDERED: COVID-19 VAC,AD26(JANSSEN)/PF 0.5 ML IM ONE (10:00)
[2020-07-30] MEDS ORDERED: LISINOPRIL 20 MG TABLET PO SCH (10:00)
[2020-07-30] MEDS ORDERED: cloNIDine HCL 0.1 MG TABLET PO PRN (11:36)
[2020-07-30] MEDS: MELATONIN 5 MG TABLETS PO SCH (21:18)
[2020-07-30] MEDS: OLANZapine 10 MG TABLET PO SCH (21:18)
[2020-07-30] MEDS: THIAMINE HCL 100 MG TABLET (FP) PO SCH (21:18)
[2020-07-31] MEDS: LISINOPRIL 20 MG TABLET PO SCH ×2 (06:56→09:59)
[2020-07-31] MEDS: HYDROCHLOROTHIAZIDE 12.5 MG CAPSULE (FP) PO SCH ×2 (06:56→09:59)
[2020-07-31] MEDS: DARUNAVIR ETHANOLATE 800 MG TAB PO SCH (07:09)
[2020-07-31] MEDS: ELVITEG/COB/EMTRI/TENOF (GENVOYA) TABLET (NF) PO SCH (07:09)
[2020-07-31] MEDS: ASPIRIN COATED 81 MG TABLET.EC PO SCH (09:59)
[2020-07-31] MEDS: PRENATAL VITAMINS W/ FOLIC ACID TABLET (FP) PO SCH (09:59)
[2020-07-31] MEDS: cloNIDine HCL 0.1 MG TABLET PO PRN ×2 (10:02→21:24)
[2020-07-31] MEDS: MELATONIN 5 MG TABLETS PO SCH (21:24)
[2020-07-31] MEDS: OLANZapine 10 MG TABLET PO SCH (21:24)
[2020-07-31] MEDS: THIAMINE HCL 100 MG TABLET (FP) PO SCH (21:24)
[2020-08-01] MEDS: cloNIDine HCL 0.1 MG TABLET PO PRN (07:02)
[2020-08-01] MEDS: DARUNAVIR ETHANOLATE 800 MG TAB PO SCH (07:02)
[2020-08-01] MEDS: ELVITEG/COB/EMTRI/TENOF (GENVOYA) TABLET (NF) PO SCH (07:02)
[2020-08-01 08:03] VITALS: TEMP 97.3
[2020-08-01 09:15] VITALS: BP 138/88; PULSE 67
[2020-08-01] MEDS: PRENATAL VITAMINS W/ FOLIC ACID TABLET (FP) PO SCH (10:18)
[2020-08-01] MEDS: ASPIRIN COATED 81 MG TABLET.EC PO SCH (10:18)
[2020-08-01] MEDS: LISINOPRIL 20 MG TABLET PO SCH (10:18)
[2020-08-01] MEDS: HYDROCHLOROTHIAZIDE 12.5 MG CAPSULE (FP) PO SCH (10:18)
== END 2020-08-01 12:35 | disposition home or self-care (01) | DRG 895 ==
LOC: YASAS 12:38 → Y3W 20:58
PROVIDERS: ADMIT Allergy & Immunology; ATTEND Allergy & Immunology
PROC: HZ42ZZZ Group Counseling for Substance Abuse Treatment, Cognitive-Behavioral (ICD-10-PCS; principal; 2020-07-27)
DX: F10.20 Alcohol dependence, uncomplicated (principal); F14.20 Cocaine dependence, uncomplicated; F19.282 Other psychoactive substance dependence with psychoactive substance-induced sleep disorder; F12.20 Cannabis dependence, uncomplicated; F17.210 Nicotine dependence, cigarettes, uncomplicated; F19.24 Other psychoactive substance dependence with psychoactive substance-induced mood disorder; F20.9 Schizophrenia, unspecified; F41.9 Anxiety disorder, unspecified; Z21 Asymptomatic human immunodeficiency virus [HIV] infection status; I10 Essential (primary) hypertension; Z86.19 Personal history of other infectious and parasitic diseases
CPT/HCPCS: 0031A; 36415; 80053; 81003; 85027; 86780; 91303; C9803; J0735; U0003; U0005

== ENCOUNTER 2022-03-07 13:21 | Inpatient (IN) | payer BC, OTHER ==
[2022-03-07 14:29] VITALS: BMI 21.6
[2022-03-07] MEDS ORDERED: ONDANSETRON *ODT* 4 MG TABLET SL PRN (17:10)
[2022-03-07] MEDS ORDERED: BISMUTH SUBSALICYLATE 524 MG/30 ML PO PRN (17:10)
[2022-03-07] MEDS ORDERED: IBUPROFEN 400 MG TABLET (FP) PO PRN (17:10)
[2022-03-07] MEDS ORDERED: NALOXONE HCL (KLOXXADO) 8 MG SPRAY NS PRN (17:10)
[2022-03-07] MEDS ORDERED: MAG HYDROX/AL HYDROX/SIMETH 30 ML UNIT-DOSE CUP PO PRN (17:10)
[2022-03-07] MEDS ORDERED: DICYCLOMINE HCL 10 MG CAPSULE PO PRN (17:10)
[2022-03-07] MEDS ORDERED: IBUPROFEN 600 MG TABLET (FP) PO PRN (17:10)
[2022-03-07] MEDS ORDERED: ACETAMINOPHEN 325 MG TABLET (FP) PO PRN ×2 (17:10)
[2022-03-07] MEDS ORDERED: POLYETHYLENE GLYCOL (HEALTHYLAX) 3350 17 GM PACKET PO PRN (17:10)
[2022-03-07] MEDS ORDERED: LOPERAMIDE HCL 2 MG CAPSULE PO PRN (17:10)
[2022-03-07] MEDS ORDERED: BENZOCAINE/MENTHOL (CHLORASEPTIC ) LOZENGE MM PRN (17:10)
[2022-03-07] MEDS ORDERED: MAGNESIUM HYDROX 2400MG/30ML ORAL SUSPENSION 30 ML CUP PO PRN (17:10)
[2022-03-07] MEDS ORDERED: NICOTINE 10 MG CARTRIDGE (INHALER) IH PRN (17:10)
[2022-03-07] MEDS: ASPIRIN COATED 81 MG TABLET.EC PO SCH (18:13)
[2022-03-07] MEDS: METHOCARBAMOL 500 MG TABLET PO PRN (18:13)
[2022-03-07] MEDS: THIAMINE HCL 100 MG TABLET (FP) PO SCH (22:44)
[2022-03-07] MEDS: MELATONIN 5 MG TABLETS PO SCH (22:44)
[2022-03-08] MEDS: ELVITEG/COB/EMTRI/TENOF (GENVOYA) TABLET (NF) PO SCH (07:08)
[2022-03-08] MEDS: PRENATAL VITAMINS W/ FOLIC ACID TABLET (FP) PO SCH (10:19)
[2022-03-08] MEDS: LISINOPRIL 20 MG TABLET PO SCH (10:19)
[2022-03-08] MEDS: HYDROCHLOROTHIAZIDE 12.5 MG CAPSULE (FP) PO SCH (10:19)
[2022-03-08] MEDS: METHOCARBAMOL 500 MG TABLET PO PRN ×2 (10:19→18:32)
[2022-03-08] MEDS: ASPIRIN COATED 81 MG TABLET.EC PO SCH (10:19)
[2022-03-08] MEDS: DARUNAVIR ETHANOLATE 800 MG TAB PO SCH (11:17)
[2022-03-08] MEDS: hydrOXYzine PAMOATE 25 MG CAPSULE (FP) PO PRN (18:32)
[2022-03-08] MEDS: THIAMINE HCL 100 MG TABLET (FP) PO SCH (21:16)
[2022-03-08] MEDS: MELATONIN 5 MG TABLETS PO SCH (21:16)
[2022-03-08] MEDS: OLANZapine 10 MG TABLET PO SCH (21:45)
[2022-03-08] MEDS: guaiFENesin 200 MG/10 ML 10 ML UNIT-DOSE CUPS PO PRN (21:46)
[2022-03-09] MEDS: METHOCARBAMOL 500 MG TABLET PO PRN (05:35)
[2022-03-09] MEDS: hydrOXYzine PAMOATE 25 MG CAPSULE (FP) PO PRN ×3 (05:35→22:02)
[2022-03-09] MEDS: guaiFENesin 200 MG/10 ML 10 ML UNIT-DOSE CUPS PO PRN ×2 (05:36→17:24)
[2022-03-09] MEDS: ELVITEG/COB/EMTRI/TENOF (GENVOYA) TABLET (NF) PO SCH (07:18)
[2022-03-09] MEDS: HYDROCHLOROTHIAZIDE 12.5 MG CAPSULE (FP) PO SCH (10:10)
[2022-03-09] MEDS: PRENATAL VITAMINS W/ FOLIC ACID TABLET (FP) PO SCH (10:10)
[2022-03-09] MEDS: LISINOPRIL 20 MG TABLET PO SCH (10:10)
[2022-03-09] MEDS: DARUNAVIR ETHANOLATE 800 MG TAB PO SCH (10:10)
[2022-03-09] MEDS: ASPIRIN COATED 81 MG TABLET.EC PO SCH (10:10)
[2022-03-09 11:20] LABS: HEMOGLOBIN 14.2 GM/dL (11.7-16.9); MCH 33.3 pg (25.7-33.7); MCHC 33.8 g/dl (32.0-35.9); MEAN CELL VOLUME 98.8 fl (80-96); MEAN PLT VOLUME 8.2 fl (7.5-11.1); PLATELET COUNT 205 10^3/uL (134-434); RBC 4.25 M/mm3 (4.00-5.60); RDW 13.2 % (11.9-15.9); WHITE BLOOD COUNT 4.1 K/mm3 (4.0-10.0)
[2022-03-09 11:53] LABS: ALBUMIN 3.6 g/dl (3.4-5.0); BLOOD UREA NITROGEN 11.2 mg/dL (7-18)
[2022-03-09 11:56] LABS: CREATININE 1.2 mg/dL (0.55-1.3)
[2022-03-09 11:57] LABS: CALCIUM 8.8 mg/dL (8.5-10.1)
[2022-03-09 11:58] LABS: BILIRUBIN,TOTAL 0.4 mg/dL (0.2-1); TOT PROT 6.9 g/dl (6.4-8.2)
[2022-03-09] MEDS ORDERED: LACTULOSE 20 GM/30 ML UDC (FOR ORAL USE ONLY) PO ONE (12:35)
[2022-03-09] MEDS: guaiFENesin 600 MG TABLET.ER (FP) PO SCH ×2 (14:54→22:01)
[2022-03-09 17:05] VITALS: RESP 16
[2022-03-09] MEDS: LACTULOSE 20 GM/30 ML UDC (FOR ORAL USE ONLY) PO SCH ×2 (17:50→22:02)
[2022-03-09] MEDS: THIAMINE HCL 100 MG TABLET (FP) PO SCH (22:01)
[2022-03-09] MEDS: OLANZapine 10 MG TABLET PO SCH (22:01)
[2022-03-09] MEDS: MELATONIN 5 MG TABLETS PO SCH (22:02)
[2022-03-10] MEDS: guaiFENesin 200 MG/10 ML 10 ML UNIT-DOSE CUPS PO PRN (05:21)
[2022-03-10] MEDS: ELVITEG/COB/EMTRI/TENOF (GENVOYA) TABLET (NF) PO SCH (07:05)
[2022-03-10 09:30] VITALS: BP 134/92; PULSE 68; TEMP 97.5
[2022-03-10] MEDS: guaiFENesin 600 MG TABLET.ER (FP) PO SCH (10:13)
[2022-03-10] MEDS: DARUNAVIR ETHANOLATE 800 MG TAB PO SCH (10:14)
[2022-03-10] MEDS: PRENATAL VITAMINS W/ FOLIC ACID TABLET (FP) PO SCH (10:14)
[2022-03-10] MEDS: ASPIRIN COATED 81 MG TABLET.EC PO SCH (10:15)
[2022-03-10] MEDS: LISINOPRIL 20 MG TABLET PO SCH (10:15)
[2022-03-10] MEDS: HYDROCHLOROTHIAZIDE 12.5 MG CAPSULE (FP) PO SCH (10:15)
[2022-03-10] MEDS: LACTULOSE 20 GM/30 ML UDC (FOR ORAL USE ONLY) PO SCH (10:15)
== END 2022-03-10 11:17 | disposition home or self-care (01) | DRG 897 ==
LOC: YASAS 13:21 → Y6N 17:36
PROVIDERS: ADMIT Allergy & Immunology; ATTEND Surgery
PROC: HZ2ZZZZ Detoxification Services for Substance Abuse Treatment (ICD-10-PCS; principal; 2022-03-07)
DX: F10.230 Alcohol dependence with withdrawal, uncomplicated (principal); F14.20 Cocaine dependence, uncomplicated; F17.210 Nicotine dependence, cigarettes, uncomplicated; F20.9 Schizophrenia, unspecified; F19.24 Other psychoactive substance dependence with psychoactive substance-induced mood disorder; Z21 Asymptomatic human immunodeficiency virus [HIV] infection status; R79.89 Other specified abnormal findings of blood chemistry; Z86.19 Personal history of other infectious and parasitic diseases; Z88.0 Allergy status to penicillin
CPT/HCPCS: 36415; 80053; 82140; 85027; 86780; 93005; 93010; C9803-CS; U0003; U0005